=== PATIENT | female | born 1990 | race African-American/Black ===

== ENCOUNTER 2018-12-20 19:26 | Emergency (ER) | payer MEDICAID, SELFPAY ==
[~2018-12-20] VITALS: Ht 167.6 cm; Wt 59.0 kg
[~2018-12-20 19:26] MED LIST: KEFLEX500 MG ORAL; RANITIDINE HCL150 MG ORAL; ZOFRAN ODT4 MG ORAL
[2018-12-20] MEDS ORDERED: NKM (19:33)
--- NOTE | 2018-12-20 19:50 | NUR ---
ED Nurse Note: Pt arrived ED from home, c/o vaginal bleeding today. Pt wanted to r/o prgnancy. pt is A/O X4. Vital signs stable at this time, waiting for orders.
[2018-12-20 20:35] LABS: APPEARANCE,URINE CLEAR; BILIRUBIN, URINE NEGATIVE (NEGATIVE); COLOR,URINE PALE YELLOW; GLUCOSE, URINE (UA) NEGATIVE (NEGATIVE); KETONES,URINE NEGATIVE (NEGATIVE); LEUKOCYTE ESTERASE ,URINE NEGATIVE (NEGATIVE); NITRITE,URINE NEGATIVE (NEGATIVE); PH,URINE 6.5 (4.5-8.0); PROTEIN,URINE NEGATIVE (NEGATIVE); UROBILINOGEN,URINE NORMAL MG/DL (0.0-1.0)
[2018-12-20 21:25] LABS: BASOPHILS % (AUTO) 1.1 % (0.0-2.0); EOSINOPHILS % (AUTO) 2.7 % (0.0-3.0); HEMATOCRIT 36.6 % (37.0-47.0); HEMOGLOBIN 11.7 G/DL (12.0-16.0); LYMPHOCYTES % (AUTO) 37.6 % (20.0-45.0); MEAN CORPUSCULAR VOLUME 79 FL (80-99); MONOCYTES % (AUTO) 4.2 % (1.0-10.0); NEUTROPHILS % (AUTO) 54.4 % (45.0-75.0); PLATELET COUNT 252 K/UL (150-450); RED BLOOD COUNT 4.62 M/UL (4.20-5.40); RED CELL DISTRIBUTION WIDTH 13.3 % (11.6-14.8); WHITE BLOOD COUNT 8.2 K/UL (4.8-10.8)
--- NOTE | 2018-12-20 21:36 | Emergency Room Report ---
History of Present Illness General Chief Complaint: Complications Source: Patient Present Illness HPI 28 YO Female presents to the ED c.o spotting x 2 days with 2/10 in severity lower abdominal cramping pain. pt is . She denies N/V/F/C, Constipation or diarrhea. pt. denies urinary frequency, urgency, dysuria or hematuria. pt. denies tenderness to the abdomen. She denies trauma or fall. last LMP was . no aggravating or relieving factors. Does not know what blood type she is. Has used 3 panty-liners so far. Allergies: Coded Allergies: No Known Allergies (Unverified , 01/30/14) Patient History Past Medical History: see triage record Past Surgical History: none Pertinent Family History: none Last Menstrual Period: 11/09/18 Now: Yes Reviewed Nursing Documentation: PMH: Agreed; PSxH: Agreed Nursing Documentation-PMH Past Medical History: No Stated History Review of Systems All Other Systems: negative except mentioned in HPI Physical Exam Vital Signs Date Time Temp Pulse Resp B/P (MAP) Pulse Ox O2 Delivery O2 Flow Rate FiO2 12/20/18 19:29 98.6 84 12 122/83 99 Room Air Sp02 EP Interpretation: reviewed, normal General Appearance: no apparent distress, alert, GCS 15, non-toxic Head: normocephalic, atraumatic Eyes: bilateral eye normal inspection, bilateral eye PERRL ENT: hearing grossly normal, normal voice Neck: full range of motion Respiratory: chest non-tender, lungs clear, normal breath sounds, speaking full sentences Cardiovascular #1: regular rate, rhythm Gastrointestinal: normal bowel sounds, non tender, soft, non-distended, no guarding Rectal: deferred Genitourinary: normal inspection, no CVA tenderness, adnexa normal, deferred - Ultrasound Musculoskeletal: back normal, gait/station normal, normal range of motion, non- tender Neurologic: alert, oriented x3, responsive, motor strength/tone normal, sensory intact, speech normal, grossly normal Psychiatric: judgement/insight normal Skin: normal color, no rash, warm/dry, well hydrated Lymphatic: no adenopathy Medical Decision Making PA Attestation Dr. Connell is my supervising Physician whom patient management has been discussed with. Diagnostic Impression: Primary Impression: Spotting during in first trimester Additional Impression: Threatened miscarriage in early ER Course 28 YO Female presents to the ED c.o spotting x 2 days with 2/10 in severity lower abdominal cramping pain. pt is . She denies N/V/F/C, Constipation or diarrhea. pt. denies urinary frequency, urgency, dysuria or hematuria. pt. denies tenderness to the abdomen. She denies trauma or fall. last LMP was . no aggravating or relieving factors. Does not know what blood type she is. Has used 3 panty-liners so far. Ddx considered but are not limited to: Fibroid, ectopic , Fibroid, Spontaneous , Vital signs: are WNL, pt. is afebrile H&PE are most consistent with: spotting during early , threatened miscarriage vs. ectopic. ORDERS: -Urine hcg- Positive -serum Hcg Quant: 199 - Blood/RH type and screen- see attached labs -UA - unremarkable -Pelvic US complete- no IUP, ED INTERVENTIONS: None at this time. I discussed with this patient the need for follow-up with CERTIFIED NURSE PRACTITIONER for serial hCG measurement as well as ultrasound. PT. is given given strict ED return precautions for worsening or new symptoms, other nguyen d/w pt. bedrest. DISCHARGE: At this time pt. is stable for d/c to home. Will provide printed patient care instructions, and any necessary prescriptions. Care plan and follow up instructions have been discussed with the patient prior to discharge. Labs Test 12/20/18 19:50 12/20/18 21:07 Urine Color Pale yellow Urine Appearance Clear Urine pH 6.5 (4.5-8.0) Urine Specific [place] 1.005 (1.005-1.035) Urine Protein Negative (NEGATIVE) Urine Glucose (UA) Negative (NEGATIVE) Urine Ketones Negative (NEGATIVE) Urine Blood 5+ (NEGATIVE) Urine Nitrite Negative (NEGATIVE) Urine Bilirubin Negative (NEGATIVE) Urine Urobilinogen Normal MG/DL (0.0-1.0) Urine Leukocyte Esterase Negative (NEGATIVE) Urine RBC 5-10 /HPF (0 - 2) Urine WBC 0-2 /HPF (0 - 2) Urine Squamous Epithelial Cells Few /LPF (NONE/OCC) Urine Bacteria Few /HPF (NONE) Urine HCG, Qualitative Positive (NEGATIVE) White Blood Count 8.2 K/UL (4.8-10.8) Red Blood Count 4.62 M/UL (4.20-5.40) Hemoglobin 11.7 G/DL (12.0-16.0) Hematocrit 36.6 % (37.0-47.0) Mean Corpuscular Volume 79 FL (80-99) Mean Corpuscular Hemoglobin 25.3 PG (27.0-31.0) Mean Corpuscular Hemoglobin Concent 32.0 G/DL (32.0-36.0) Red Cell Distribution Width 13.3 % (11.6-14.8) Platelet Count 252 K/UL (150-450) Mean Platelet Volume 5.0 FL (6.5-10.1) Neutrophils (%) (Auto) 54.4 % (45.0-75.0) Lymphocytes (%) (Auto) 37.6 % (20.0-45.0) Monocytes (%) (Auto) 4.2 % (1.0-10.0) Eosinophils (%) (Auto) 2.7 % (0.0-3.0) Basophils (%) (Auto) 1.1 % (0.0-2.0) Sodium Level 139 MMOL/L (136-145) Potassium Level 3.7 MMOL/L (3.5-5.1) Chloride Level 105 MMOL/L (98-107) Carbon Dioxide Level 24 MMOL/L (21-32) Anion Gap 10 mmol/L (5-15) Blood Urea Nitrogen 8 mg/dL (7-18) Creatinine 0.6 MG/DL (0.55-1.30) Estimat Glomerular Filtration Rate > 60 mL/min (>60) Glucose Level 95 MG/DL (74-106) Calcium Level 8.9 MG/DL (8.5-10.1) Human Chorionic Gonadotropin, Quant 199 mIU/mL (1-6) CT/MRI/US Diagnostic Results CT/MRI/US Diagnostic Results : Imaging Test Ordered: US Pelvic Impression "No IUP no findings to suggest pelvic free fluid, probable right ovarian corpus luteum cyst versus follicle otherwise unremarkable study". Per official radiology report- Please see report for specific details. Last Vital Signs Date Time Temp Pulse Resp B/P (MAP) Pulse Ox O2 Delivery O2 Flow Rate FiO2 12/20/18 19:29 98.6 84 12 122/83 99 Room Air Status: improved Disposition: HOME, SELF-CARE Condition: Stable Scripts Cmb#95/Iron/Fa/Dha ( + DHA COMBO PACK) 1 Each Combo..pkg 1 EACH PO DAILY for 30 Days, #1 PACK 3 Refills Prov: Maria E Lantigua 12/20/18 Referrals: NON PHYSICIAN (PCP) Departure Forms: Return to Work Return to Work Date: December 24, 2018 Work Restrictions: No Heavy Lifting, No Prolonged Standing Return to Full Activity: December 24, 2018 Patient Instructions: Vaginal Bleeding During , First Trimester, Easy- to-Read Additional Instructions: Take medications as directed. Follow up with a OBGYN within 3 days, even if your symptoms have resolved. REPEAT HCG MEASUREMENTS AND NEEDS US CONFIRMATION OF IUP. Return sooner to ED if new symptoms occur, or current symptoms become worse. - Please note that this Emergency Department Report was dictated using [employer] driver technology software, occasionally this can lead to erroneous entry secondary to interpretation by the dictation equipment. Maria E Lantigua Dec 20, 2018 21:36
[2018-12-20] MEDS ORDERED: PRENATAL + DHA1 EAC2 PO (21:38)
[2018-12-20 21:41] LABS: ANION GAP 10 mmol/L (5-15); BLOOD UREA NITROGEN 8 mg/dL (7-18); CALCIUM 8.9 MG/DL (8.5-10.1); CARBON DIOXIDE 24 MMOL/L (21-32); CHLORIDE 105 MMOL/L (98-107); CREATININE 0.6 MG/DL (0.55-1.30); POTASSIUM 3.7 MMOL/L (3.5-5.1); SODIUM 139 MMOL/L (136-145)
[2018-12-20 22:15] VITALS: BP 125/81
--- NOTE | 2018-12-20 22:15 | NUR ---
ER DISCHARGE NOTE: Patient is cleared to be discharged per Dr. Norton. Pt is aox4 on room air with stable vital signs. Pt was given dc and prescription instructions and was able to verbalize understanding. Pt's ID band removed. pt is d/c from ED with steady gait and pt took all belongings.
--- NOTE | 2018-12-21 11:09 | Diagnostic Imaging Report ---
Indication: Vaginal bleeding, positive test Technique: Transabdominal and transvaginal images of the pelvis Comparison: none Findings: Uterus measures 8 cm length by 4.4 cm AP. The endometrium measures 8 mm thick. No intrauterine demonstrated. No myometrial abnormality. Right ovary measures 4.7 cm length. It demonstrates a 2.7 cm cyst with a few septations and reticulations. The left ovary measures 2.9 cm in length. No adnexal mass demonstrated. No free cul-de-sac fluid. Both ovaries demonstrate normal flow on Doppler interrogation. Impression: No intrauterine demonstrated. Differential considerations include very early intrauterine , spontaneous , sonographically occult ectopic . Correlate with clinical findings and serial beta hCGs, consider follow-up sonography as indicated Hemorrhagic right ovarian corpus luteum This agrees with the preliminary interpretation [email or web address].
== END 2018-12-20 22:15 | disposition home or self-care (01) ==
LOC: EMR 21:17
DX: O20.0 Threatened abortion (principal); Z3A.00 Weeks of gestation of pregnancy not specified
CPT/HCPCS: 76801; 76830; 80048; 81003; 81025; 84702; 85025; 99284